=== PATIENT | male | born 1960 | race African-American/Black ===

== ENCOUNTER 2017-11-28 14:52 | Inpatient (IN) | payer MEDICARE, OTHER ==
[~2017-11-28] VITALS: Ht 182.9 cm; Wt 129.7 kg
[2017-11-28] MEDS: PRAMIPEXOLE DIHYDROCHLORIDE 0.25 MG TAB PO SCH (08:25)
[2017-11-28] MEDS: LORAZEPAM 1 MG TAB PO SCH (08:35)
[~2017-11-28 14:52] MED LIST: AMBIEN CR12.5 MG PO; ATORVASTATIN CA10 MG PO; ATORVASTATIN PO; CALCITRIOL0.25 MCG PO; DIALYVITE 8000.8 MG PO; NORCO 5-325 TA1 EACH PO; RENVELA800 MG PO; SODIUM ACETATE PO; SODIUM BICARB PO
--- OUTSIDE RECORDS SUMMARY | 2017-11-28 14:54 | XMS REPORT | Clinical Summary ---
Author Author Sammy [facility]arsani Organization [facility] Address Unknown Phone Unavailable Care Team Providers Care Front Office Specialist Name Role Phone Asked, Pcp PCP Unavailable Allergies Active Allergy Reactions Severity Noted Date Comments Meperidine Other (See Comments) 2016 Syncope; 20 years ago Current Medications Prescription Sig. Disp. Refills Start End Date Status Date zolpidem CR (AMBIEN CR) Take by mouth. Multiphase Active 12.5 MG CR tablet FA-vit Take by mouth. Active Rxyro-E-aupq-vitamin D3 (DIALYVITE 800-ULTRA D) 0.8-2,000 mg-unit tablet atorvastatin (LIPITOR) 10 Take by mouth. Active MG tablet HYDROcodone-acetaminophen Take by mouth. Active (NORCO) 5-325 mg per tablet sevelamer (RENVELA) 800 Take by mouth. Active mg tablet cinacalcet (SENSIPAR) 60 Take by mouth. Active MG tablet meloxicam (MOBIC) 15 MG Take 15 mg by mouth Active tablet daily. calcium acetate (PHOSLO) Take 1,334 mg by mouth 3 Active 667 mg capsule (three) times a day with meals. pramipexole (MIRAPEX) Take 0.125 mg by mouth 3 Active 0.125 MG tablet (three) times a day. sodium bicarbonate 648 MG Take 650 mg by mouth 3 Active tablet (three) times a day. cholecalciferol, vitamin Take 5,000 Units by mouth Active D3, (VITAMIN D3) 5,000 daily. unit capsule Active Problems Problem Noted Date Tachycardia 02/28/2016 Nephritis Overview: diagnosed over 20 years ago End stage renal disease on dialysis Overview: on transplant list Encounters Date Type Specialty Care Team Description 02/18/2017 Documentation Transplant Sima Martinez dialysis liaison waitlist update after 11/27/2016 Social History Tobacco Use Types Packs/Day Years Used Date Never Smoker Alcohol Use Drinks/Week oz/Week Comments No Sex Assigned at Date Recorded Not on file Last Filed Vital Signs Vital Sign Reading Time Taken Blood Pressure - - Pulse - - Temperature - - Respiratory Rate - - Oxygen Saturation - - Inhaled Oxygen - - Concentration Weight 119 kg (262 lb) 02/18/2017 1:37 PM CDT Height 177.8 cm (5' 10") 02/18/2017 1:37 PM CDT Body Mass Index 37.59 02/18/2017 1:37 PM CDT Plan of Treatment Health Maintenance Due Date Last Done Comments COLONOSCOPY 02/05/2010 INFLUENZA VACCINE 04/26/2017 Results Not on fileafter 11/27/2016 Insurance Payer Benefit Subscriber ID Type Phone Address Plan / Group MEDICARE MEDICARE xxxxxxxxxx Medicare [place], [place] PART A AND B AETNA AETNA xxxxxxxxx HMO HMO,POS,EP O, MC/EC SONNYALEJANDRO THEE Transplant Self 1960 Home: [id number] [place] [address]
--- OUTSIDE RECORDS SUMMARY | 2017-11-28 14:54 | XMS REPORT | Clinical Summary ---
Author Author AUGIE [facility] Organization [facility] Address Unknown Phone Unavailable Care Team Providers Care Entry Level Staff Accountant Name Role Phone PCP Unavailable Allergies Active Allergy Reactions Severity Noted Date Comments Meperidine Other (See Comments) High 10/11/2012 Passed out Current Medications Prescription Sig. Disp. Refills Start End Date Status Date cloNIDine (CATAPRES) 0.2 Take 0.2 mg by mouth 3 Active MG tablet (three) times daily. hydrALAZINE (APRESOLINE) Take 100 mg by mouth 3 Active 100 MG tablet (three) times daily. lisinopril Take 40 mg by mouth as Active (PRINIVIL,ZESTRIL) 40 MG needed. tablet olmesartan (BENICAR) 40 Take 40 mg by mouth as Active MG tablet needed. amLODIPine (NORVASC) 10 Take 10 mg by mouth Active MG tablet daily. doxazosin (CARDURA) 8 MG Take 8 mg by mouth 2 Active tablet (two) times daily. furosemide (LASIX) 40 MG Take 40 mg by mouth as Active tablet needed. paricalcitol (ZEMPLAR) 4 Take 4 mg by mouth daily. Active MCG capsule Given IV during HD sevelamer (RENVELA) 800 Take 1,600 mg by mouth 3 Active mg tablet (three) times daily with meals. sodium bicarbonate 648 MG Take 1 tablet by mouth Active tablet daily. Given IV during HD carvedilol (COREG) 6.25 Take 6.25 mg by mouth as Active MG tablet needed. NIFEdipine (ADALAT CC) 30 Take 30 mg by mouth 2 Active MG 24 hr tablet (two) times daily. atorvastatin (LIPITOR) 10 Take 10 mg by mouth Active MG tablet daily. zolpidem (AMBIEN) 10 mg Take 10 mg by mouth every Active tablet night as needed. HYDROcodone-acetaminophen Take 1 capsule by mouth Active (LORCET-HD) 5-500 mg per every 6 (six) hours as capsule needed. FA-vit Take 1 tablet by mouth Active Bcomp&D-saebxqbi-bdbk daily. (FOLIC ACID-VITAMIN B COMPLEX-VITAMIN P-[id number]) 3-70-15 mg-mcg-mg Tab Active Problems Problem Noted Date ESRD (end stage renal disease) on dialysis (HCC) GN (glomerulonephritis) HTN (hypertension) DM (diabetes mellitus) (HCC) CAD (coronary artery disease) Social History Tobacco Use Types Packs/Day Years Used Date Never Smoker Smokeless Tobacco: Never Used Sex Assigned at Date Recorded Not on file Last Filed Vital Signs Not on file Plan of Treatment Health Maintenance Due Date Last Done Comments INFLUENZA VACCINE 06/26/2017 Results Not on fileafter 11/27/2016
--- OUTSIDE RECORDS SUMMARY | 2017-11-28 15:35 | XMS REPORT | Clinical Summary ---
Author Author AUGIE [facility] Organization [facility] Address Unknown Phone Unavailable Care Team Providers Care Pool Hand Name Role Phone PCP Unavailable Allergies Active [...] FA-vit Take 1 tablet by mouth Active Bcomp&B-wkfcgqpg-uczo daily. (FOLIC ACID-VITAMIN B COMPLEX-VITAMIN [id number]) 3-70-15 mg-mcg-mg Tab Active Problems Problem Noted [...]
--- OUTSIDE RECORDS SUMMARY | 2017-11-28 15:35 | XMS REPORT | Clinical Summary ---
Author Author Sammy [facility] Organization [facility] Address Unknown Phone Unavailable Care Team Providers Care Tree And Shrub Worker Name Role Phone Asked, Pcp PCP Unavailable Allergies Active Allergy Reactions Severity Noted Date Comments Meperidine Other (See Comments) 2016 Syncope; 20 years ago Current Medications Prescription Sig. Disp. Refills Start End Date Status Date zolpidem CR (AMBIEN CR) Take by mouth. Multiphase Active 12.5 MG CR tablet FA-vit Take by mouth. Active Kaggq-M-pwzc-vitamin D3 (DIALYVITE 800-ULTRA D) 0.8-2,000 mg-unit tablet [...] Plan / Group MEDICARE MEDICARE xxxxxxxxxx Medicare [place], [place] PART A AND B AETNA AETNA xxxxxxxxx HMO HMO,POS,EP O, MC/EC SONNYALEJANDRO THEE Transplant Self 1960 Home: [id number] [place] [address]
[2017-11-28 16:09] VITALS: BP 157/73
[2017-11-28 16:40] VITALS: BP 157/73
[2017-11-28] MEDS ORDERED: SODIUM CHLORIDE 0.9% 250ML 250 ML ONE (16:40)
[2017-11-28] MEDS: VANCOMYCIN 1GM/NS 250 ML 250 ML IV SCH (16:56)
[2017-11-28] MEDS ORDERED: NORCO 10-325 T1 EACH PO (17:21)
[2017-11-28] MEDS ORDERED: VITAMIN D1000 UNI1 PO (17:21)
[2017-11-28] MEDS ORDERED: DIALYVITE 800-1 EACH (17:21)
[2017-11-28] MEDS ORDERED: HYDROCODONE/APAP 10MG-325MG TAB PO PRN (17:30)
[2017-11-28 18:23] LABS: HEMATOCRIT 28.4 % (38.2-49.6); HEMOGLOBIN 8.8 g/dL (14.0-18.0); MEAN CORPUSCULAR HEMOGLOBIN 29.3 pg (28-32); MEAN CORPUSCULAR VOLUME 94.7 fL (81-99); PLATELET COUNT 176 x10e3/uL (140-360); RED CELL DISTRIBUTION WIDTH 14.9 % (11.7-14.4)
--- NOTE | 2017-11-28 18:34 | Diagnostic Imaging Report ---
PROCEDURE:X-RAY RIGHT FOOT, COMPLETE COMPARISON:None. INDICATIONS:INFECTION FINDINGS: No acute fracture or dislocation. Erosive changes of the tip of the distal phalanx of the second toe with soft tissue swelling. There is also questionable mild erosive changes of the tip of distal phalanx of great toe. Mild hallux valgus deformity. Vascular calcifications. Soft tissue swelling of the forefoot and midfoot. CONCLUSION: Findings, suspicious for osteomyelitis of the distal phalanx of the second toe. Please correlate clinically and if indicated consider obtaining MRI to confirm. Questionable minimal erosive changes of the tip of the distal phalanx of the great toe. Dictated by: Paxton Acevedo M.D. on 11/28/2017 at 18:33 Electronically approved by: Paxton Acevedo M.D. on 11/28/2017 at 18:33
[2017-11-28 18:35] LABS: ANION GAP 19.7 mmol/L (8-16); CALCIUM 8.6 mg/dL (8.4-10.2); CREATININE, SERUM 7.48 mg/dL (0.72-1.25); POTASSIUM 4.7 mmol/L (3.5-5.1)
[2017-11-28] MEDS ORDERED: CALCIUM ACETAT667 MG PO (19:49)
[2017-11-28] MEDS ORDERED: PRAMIPEXOLE D0.25 MG (19:49)
[2017-11-28] MEDS ORDERED: LORAZEPAM1 MG PO (19:49)
[2017-11-28 20:00] VITALS: BP 148/67
[2017-11-28] MEDS: ATORVASTATIN 10 MG TAB PO SCH (20:25)
[2017-11-28] MEDS: CALCIUM ACETATE 667 MG GELCAP PO SCH (20:25)
[2017-11-28] MEDS: CALCITRIOL 0.25 MCG CAP PO SCH (20:25)
[2017-11-28] MEDS: PIPER-TAZ 3.375 GM 50 ML IV SCH (20:25)
[2017-11-28] MEDS ORDERED: CALCITRIOL 0.25 MCG CAP PO SCH (21:00)
[2017-11-28] MEDS ORDERED: ZOLPIDEM TARTRATE 12.5 MG PO SCH (21:00)
[2017-11-28] MEDS: HYDROCODONE/APAP 10MG-325MG TAB PO PRN (21:25)
[2017-11-29] VITALS (7 sets, daily range): BP systolic 131–161; BP diastolic 65–74
[2017-11-29] MEDS: ZOLPIDEM TARTRATE 10 MG TAB PO PRN ×2 (01:49→22:45)
[2017-11-29] MEDS: PIPER-TAZ 3.375 GM 50 ML IV SCH ×4 (02:01→20:00)
[2017-11-29] MEDS: VANCOMYCIN 1GM/NS 250 ML 250 ML IV SCH (04:49)
[2017-11-29] MEDS: ACETAMINOPHEN 325 MG TAB PO PRN ×2 (04:49→17:32)
[2017-11-29] MEDS ORDERED: AURYXIA PO SCH (08:00)
[2017-11-29] MEDS ORDERED: IRON-VITAMIN-MINERAL CAPSULE PO SCH (09:00)
[2017-11-29] MEDS ORDERED: NON-FORMULARY MEDICATION PO SCH (09:00)
[2017-11-29] MEDS ORDERED: ATORVASTATIN 10 MG TAB PO SCH (09:00)
[2017-11-29] MEDS ORDERED: SODIUM BICARBONATE 650 MG PO SCH (09:00)
[2017-11-29] MEDS ORDERED: SODIUM BICARBONATE 650 MG TAB PO SCH (09:00)
[2017-11-29] MEDS: CALCIUM ACETATE 667 MG GELCAP PO SCH ×3 (09:34→17:14)
[2017-11-29] MEDS: IRON-VITAMIN-MINERAL CAPSULE PO SCH (09:34)
[2017-11-29] MEDS: FOLIC ACID/CYANOCOB/PYRIDOXINE TAB PO SCH (09:34)
[2017-11-29] MEDS: SEVELAMER CARBONATE 800 MG TAB PO SCH ×3 (09:34→17:14)
[2017-11-29] MEDS: CHOLECALCIFEROL 1,000 UNIT TAB PO SCH (09:35)
[2017-11-29] MEDS: CALCITRIOL 0.25 MCG CAP PO SCH (09:35)
[2017-11-29] MEDS: HYDROCODONE/APAP 10MG-325MG TAB PO PRN ×2 (10:00→22:45)
--- NOTE | 2017-11-29 10:09 | History and Physical ---
CHIEF COMPLAINT: Right foot infection. HISTORY OF PRESENT ILLNESS: This is a 57-year-old male who presents to [facility] emergency room with a 1-week history of worsening right foot wound with surrounding swelling and redness of the right foot and right lower leg. The patient states that he has actually suffered from a chronic wound on his right foot for a year, but these symptoms became much worse in the last week. He has also been having fevers for the past couple of days. Denies any chills. On admission, the patient was found to have a white blood cell count of 10,400. The patient is also on hemodialysis. On admission, the patient's glucose was 152 mg/dL. Also, on admission the patient underwent a plain film x-ray of the right foot, which revealed findings suspicious for osteomyelitis of the right 2nd toe distal phalanx. The patient was admitted for further evaluation and treatment. REVIEW OF SYSTEMS GENERAL: Weight has been stable in the last year. He has had fever for the past couple of days. No chills. HEENT: No headaches. No visual changes. CARDIOVASCULAR/RESPIRATORY: No chest pain. No shortness of breath or cough. GI: No nausea, vomiting, diarrhea, or constipation. : No UTI or BPH symptoms. He only urinates minimally since he is on hemodialysis. NEUROMUSCULAR: Has numbness in his feet, but complains of worsening right foot wound with surrounding swelling and pain in the last week. PAST MEDICAL HISTORY 1. Type 2 diabetes mellitus (diet controlled). 2. Hypertensive heart disease. 3. Obesity. 4. End-stage renal disease (since 2012). 5. Chronic anemia. 6. Hyperlipidemia. 7. Anxiety disorder. 8. Restless leg syndrome. SURGICAL HISTORY 1. Gastric bypass in 2005 resulting in a 150-pound weight loss. 2. Panniculectomy. 3. Bilateral gynecomastia surgery. 4. Left carpal tunnel surgery. 5. Parathyroidectomy. 6. Left upper extremity AV fistula placement. FAMILY HISTORY: His mother also suffered from end-stage renal disease. SOCIAL HISTORY: The man lives with his . He is retired. No history of tobacco or alcohol use. ALLERGIES: MEPERIDINE. HOME MEDICATIONS 1. Atorvastatin 10 mg at bedtime. 2. Calcitriol 0.5 mcg t.i.d. 3. Calcium acetate 667 mg daily. 4. Cholecalciferol (vitamin D3) 5000 units daily. 5. Dialyvite 1 pill daily. 6. Hydrocodone with acetaminophen 10 per 325 mg 1 daily p.r.n. pain. 7. Lorazepam 1 mg by mouth before hemodialysis as needed. 8. Requip 0.125 mg once daily. 9. Zolpidem CR 12.5 mg at bedtime. 10. Sodium bicarbonate 650 mg b.i.d. PHYSICAL EXAMINATION GENERAL: He is awake, alert and oriented. No distress. Very pleasant and cooperative with exam. VITALS: Blood pressure is 135/70 but on admission was 157/73, pulse 80, respiratory rate 18, oxygen saturation 95% on room air, temperature is currently 98.9. The last temperature did get as high as 100.6 late last night. Height 6 feet zero inches, weight 256 pounds. Calculated body mass index 36. INTEGUMENT: Skin is warm and dry. No pallor or conjunctivitis appreciated. HEENT: Anicteric sclerae. Moist mucous membranes. NECK: Supple. CARDIOVASCULAR: Regular rate and rhythm. The patient has a systolic ejection murmur, as well as a faint rub. LUNGS: No rales. No rhonchi. No wheezing. ABDOMEN: Obese. EXTREMITIES: The patient's right foot is dressed, but he has obvious swelling and discoloration of the right foot, as well as the right lower leg. According to the patient, it is improving. NEUROLOGIC: Intact. No gross focal deficits. He has decreased pinprick to sensation to the plantar aspect of his bilateral feet. DIAGNOSES 1. Sepsis secondary to right 2nd toe osteomyelitis with surrounding cellulitis. 2. Right 2nd toe osteomyelitis with surrounding cellulitis. 3. Type 2 diabetes mellitus. 4. End-stage renal disease. 5. Hypertensive heart disease. 6. Obesity: Calculated body mass 36. 7. Anemia secondary to chronic disease/chronic kidney disease. PLAN 1. Consult nephrology for hemodialysis. 2. Agree with MRI as ordered by podiatry. 3. Consult podiatry. 4. Order iron studies, as well as vitamin B12 level because of the anemia. 5. Intravenous antibiotics. 6. Order blood cultures. 7. Acetaminophen for the patient's fever. 8. Pain control. 9. Will check a hemoglobin A1c. I spent 1 hour in the care of this patient. Job#: [id number] LOPEZ JENNINGS
[2017-11-29 10:22] LABS: BASOPHILS % 0.2 % (0.0-1.0); EOSINOPHILS % 0.4 % (0.0-6.0); HEMATOCRIT 27.4 % (38.2-49.6); HEMOGLOBIN 8.4 g/dL (14.0-18.0); LYMPHOCYTES # (AUTO) 0.4 (1.0-3.2); LYMPHOCYTES % 3.5 % (18.0-39.1); MEAN CORPUSCULAR HEMOGLOBIN 29.3 pg (28-32); MEAN CORPUSCULAR HGB CONC 30.7 g/dL (31-35); MEAN CORPUSCULAR VOLUME 95.5 fL (81-99); MONOCYTES # (AUTO) 1.4 (0.2-0.8); MONOCYTES % 13.4 % (4.4-11.3); NEUTROPHILS # (AUTO) 8.6 (2.1-6.9); NEUTROPHILS % 81.7 % (38.7-80.0); PLATELET COUNT 155 x10e3/uL (140-360); RED BLOOD COUNT 2.87 x10e6/uL (4.3-5.7); RED CELL DISTRIBUTION WIDTH 14.6 % (11.7-14.4)
[2017-11-29 10:39] LABS: CHOL/HDL RATIO 2.1 (3.9-4.7)
[2017-11-29 10:58] LABS: FERRITIN 475.38 ng/mL (21.81-274.66)
--- NOTE | 2017-11-29 12:36 | Consultation ---
DATE OF CONSULTATION: RENAL CONSULTATION HISTORY OF PRESENT ILLNESS: This a 57-year-old gentleman previously seen by [facility], switched to [facility] service. Receives dialysis Tuesday/Tuesday/Tuesday. Came in with gangrenous foot. Has osteomyelitis. Scheduled for surgery. Currently no apparent distress. Denies nausea, vomiting, headache, fever, chills, chest pain, shortness of breath. ALLERGIES: MEPERIDINE. CURRENT MEDICATIONS: Renagel 1600 mg p.o. t.i.d. with meals. Cholecalciferol 5000 units daily. Piptazo antibiotics. Sodium bicarbonate 650 mg p.o. b.i.d. Folic acid. Pyridoxine. Multivitamins. Tylenol p.r.n. Lorazepam p.r.n. Calcitriol 0.5 mg p.o. t.i.d. Vancomycin q.24, which I am going to switch to every hemodialysis. He is on zolpidem 10 mg p.o. nightly and pramipexole dihydrochloride 0.25 mg every Tuesday, Tuesday and Tuesday. SOCIAL HISTORY: Patient does not smoke or drink. PAST MEDICAL HISTORY: Type 2 diabetes, hypertension, end-stage renal disease. PHYSICAL EXAMINATION: GENERAL: Awake, alert, lying supine. No apparent distress. VITALS: Blood pressure 135/70, pulse rate 80. HEAD AND NECK: Cornea clear. Oral mucosa moist. Neck veins flat. LUNGS: Occasional rales, right lower zone more than left. HEART: S1/S2 audible. ABDOMEN: Otherwise soft, nontender. LOWER EXTREMITY EXAMINATION: Shows no edema. Dressing noted over the toe, which is not removed for evaluation. IMPRESSION/PLAN: 1. End-stage renal disease. 2. Underlying hypertension. 3. Secondary hyperparathyroidism. Calcitriol is very high dose. I will change it to daily. Has serum bicarbonate 30 once. I am going to stop the sodium bicarbonate tablets. Will dose vancomycin every Tuesday, Tuesday and Tuesday post dialysis. Will obtain Mircera schedule from the dialysis care team. Current volume status stable. Blood pressure appears stable. Please see orders. Job#: [id number] EV
--- NOTE | 2017-11-29 13:01 | Consultation ---
DATE OF CONSULTATION: November 29, 2017 HISTORY OF PRESENT ILLNESS: This is a 57-year-old male with past medical history of type-2 diabetes, end-stage renal disease, and hypertension, who was admitted through direct admitting yesterday after being seen in the office by Dr. Willingham with a worsening infection to his right foot. The patient relates having a wound to his right 2nd digit and has missed several appointments to see Dr. Willingham. The wound has significantly worsened. The patient was noted to have osteomyelitis on plain film x-ray in the office, and he was instructed to be admitted to the hospital for IV antibiotics, lab work, MRI and possible surgical intervention. The patient is seen at bedside this morning and is seen resting comfortably. He relates to moderate pain to his right foot. Denies nausea, vomiting, fever, chills, chest pain or shortness of breath. PAST MEDICAL HISTORY: Type-2 diabetes, heart disease, end-stage renal disease, chronic anemia, hyperlipidemia. SURGICAL HISTORY: Gastric bypass, left carpal tunnel surgery, left bunion surgery, parathyroidectomy, AV fistula. FAMILY HISTORY: Noncontributory. SOCIAL HISTORY: Patient is at home, , lives with his . Denies any history of alcohol use, smoking or any illicit drug usage. ALLERGIES: MEPERIDINE. HOME MEDICATIONS: Per the chart. REVIEW OF SYSTEMS: The patient currently denies nausea, vomiting, fever, chills, chest pain or shortness of breath. PHYSICAL EXAMINATION GENERAL: Alert and oriented times 3, in no apparent distress. VITAL SIGNS: Today, temperature is 99.5, blood pressure 149/65, pulse oximetry 92% on room air. PROBLEM-FOCUSED LOWER EXTREMITY PHYSICAL EXAMINATION VASCULAR: Dorsalis pedis and posterior tibial pulses are faintly palpable. Erythema, edema and warmth are noted to the patient's right 2nd digit greater than 2 cm extending to the level of the metatarsophalangeal joint. NEUROLOGIC: Sensation is diminished to light touch to bilateral lower extremities. MUSCULOSKELETAL: Pain on palpation, otherwise deferred at this time. DERMATOLOGICAL: Two large draining ulcerations are noted to the medial and lateral aspects of the patient's right 2nd digit with purulence noted. The wound probes directly to bone. There is malodor present. There is dark, dusky discoloration of the right 2nd digit. The right 2nd digit is approximately 1-1/2 to 2 times the size of the right 3rd digit. LABS: White blood cell count is 10.5, hemoglobin 8.4, hematocrit 27.4, platelet count 155. Neutrophil percentage is 81.7. Sodium 140, potassium 4.7, chloride 94, BUN 59, creatinine 7.4. X-RAYS: Three views were taken of the patient's right foot which show findings suspicious for osteomyelitis in the distal phalanx of the 2nd digit. ASSESSMENT 1. Right 2nd digit osteomyelitis. 2. Type-2 diabetes and peripheral neuropathy. 3. End-stage renal disease. PLAN: Patient was seen and evaluated. Discussed condition, x-rays and treatment options with the patient in detail. I discussed with the patient that plain film x-rays show osteomyelitis and would recommend a 2nd toe amputation at this time. The patient agrees. Will order MRI to confirm osteomyelitis and determine the extent of bone infection to see if the patient will need a partial 2nd ray amputation. MRI will be performed later today. The patient is on the schedule for a right 2nd digit amputation on 11/30/2017, at 12:30. The patient will have his dialysis started early in the morning at 7 o'clock in order to accommodate for the surgery. Dressing change was performed today with Betadine wet-to-dry, 4 x 4's, Kerlix and tape. Discussed with the patient the complications of the surgery including increased pain, increased infection, sepsis, nonhealing or delayed wound healing, need for long-term wound care, and need for additional surgery. The patient understands the podiatry service will continue to monitor as an inpatient. Job#: [id number]
[2017-11-29] MEDS: ATORVASTATIN 10 MG TAB PO SCH (21:44)
[2017-11-30] VITALS (7 sets, daily range): BP systolic 123–134; BP diastolic 58–76
[2017-11-30] MEDS: PIPER-TAZ 3.375 GM 50 ML IV SCH ×4 (02:00→20:11)
[2017-11-30] MEDS ORDERED: VANCOMYCIN 1GM/NS 250 ML 250 ML IV SCH (05:00)
[2017-11-30 07:49] LABS: BASOPHILS % 0.2 % (0.0-1.0); EOSINOPHILS # (AUTO) 0.1 (0.0-0.4); EOSINOPHILS % 1.5 % (0.0-6.0); HEMATOCRIT 26.2 % (38.2-49.6); HEMOGLOBIN 8.4 g/dL (14.0-18.0); LYMPHOCYTES # (AUTO) 0.5 (1.0-3.2); LYMPHOCYTES % 5.1 % (18.0-39.1); MEAN CORPUSCULAR HGB CONC 32.1 g/dL (31-35); MEAN CORPUSCULAR VOLUME 90.3 fL (81-99); MONOCYTES # (AUTO) 1.3 (0.2-0.8); MONOCYTES % 13.6 % (4.4-11.3); NEUTROPHILS # (AUTO) 7.3 (2.1-6.9); NEUTROPHILS % 79.3 % (38.7-80.0); PLATELET COUNT 159 x10e3/uL (140-360); RED CELL DISTRIBUTION WIDTH 14.5 % (11.7-14.4)
[2017-11-30] MEDS: SEVELAMER CARBONATE 800 MG TAB PO SCH ×3 (08:00→17:10)
[2017-11-30] MEDS: CALCIUM ACETATE 667 MG GELCAP PO SCH ×3 (08:00→17:10)
[2017-11-30 08:13] LABS: ALBUMIN 2.5 g/dL (3.5-5.0); ALBUMIN/GLOBULIN RATIO 0.7 (0.8-2.0); ANION GAP 22.6 mmol/L (8-16); CALCIUM 8.2 mg/dL (8.4-10.2); CREATININE, SERUM 9.9 mg/dL (0.72-1.25); POTASSIUM 4.6 mmol/L (3.5-5.1)
[2017-11-30] MEDS: HYDROCODONE/APAP 10MG-325MG TAB PO PRN ×3 (08:35→21:10)
[2017-11-30] MEDS: IRON-VITAMIN-MINERAL CAPSULE PO SCH (08:56)
[2017-11-30] MEDS: CHOLECALCIFEROL 1,000 UNIT TAB PO SCH (08:57)
[2017-11-30] MEDS: CALCITRIOL 0.25 MCG CAP PO SCH (08:57)
[2017-11-30] MEDS: VANCOMYCIN 1GM/NS 250 ML 250 ML IV SCH (08:57)
[2017-11-30] MEDS: FOLIC ACID/CYANOCOB/PYRIDOXINE TAB PO SCH (08:57)
[2017-11-30] MEDS: PRAMIPEXOLE DIHYDROCHLORIDE 0.25 MG TAB PO SCH (08:58)
[2017-11-30] MEDS: LORAZEPAM 1 MG TAB PO SCH (08:58)
[2017-11-30] MEDS ORDERED: ALBUMIN HUMAN 12.5GM / 50ML IV PRN (11:15)
[2017-11-30] MEDS ORDERED: SODIUM CHLORIDE 0.9% 1000ML 2,000 ML IV PRN (11:15)
[2017-11-30] MEDS ORDERED: MANNITOL 25% 12.5GM/50 ML VIAL IV PRN (11:15)
[2017-11-30] MEDS ORDERED: SODIUM CHLORIDE 0.9% 250ML 500 ML IV PRN (11:15)
[2017-11-30] MEDS ORDERED: BUPIVACAINE HCL 0.5% INJ 30 ML VIAL INJ ONE (12:24)
[2017-11-30] MEDS ORDERED: BACITRACIN 50,000 UNIT VIAL ONE (12:24)
[2017-11-30] MEDS ORDERED: DEXAMETHASONE SOD PHOS INJ 4 MG/ML VIAL ONE (12:24)
[2017-11-30] MEDS ORDERED: SODIUM CHLORIDE 0.9% 500ML 500 ML ONE (12:31)
--- NOTE | 2017-11-30 13:38 | Operative Report ---
DATE OF PROCEDURE: November 30, 2017 PREOPERATIVE DIAGNOSIS: Right 2nd digit osteomyelitis. POSTOPERATIVE DIAGNOSIS: Right 2nd digit osteomyelitis. PLANNED PROCEDURE: Right 2nd digit amputation. ANESTHESIA: General with a postoperative block consisting of 10 mL of 0.5% Marcaine plain. HEMOSTASIS: Pneumatic ankle tourniquet set at 250 mmHg for a total time of approximately 20 minutes. MATERIALS: 3-0 nylon. ESTIMATED BLOOD LOSS: Less than 10 mL. PATHOLOGY: Anaerobic and aerobic cultures. Right 2nd digit for gross specimen. DETAILS OF PROCEDURE: Patient was seen in the preoperative waiting room where the correct procedure and site were identified. The patient was brought into the operating room and placed on the operating table in the supine position. General anesthesia was initiated at this time, and a well-padded pneumatic tourniquet was placed about the patient's right ankle. The right foot, ankle and leg were exsanguinated with gravity, and the pneumatic ankle tourniquet was inflated to 250 mmHg for a total time of approximately 20 minutes. Attention was directed to the distal aspect of the patient's right 2nd digit where an ulceration was noted to the distal tip and the medial aspect of the proximal interphalangeal joint. There the wound probed deep to bone, and there was active purulent drainage. The decision was made to proceed with the amputation. A linear incision over the 2nd metatarsophalangeal joint extending to the metatarsophalangeal joint with 2 converging semi-elliptical incisions was started with a number 15 blade. The incision was carried down directly to the bone. There was noted to be a moderate amount of purulent drainage from the proximal interphalangeal joint. This was cultured and passed off to the back table. Next, the digit was grasped with a towel clamp, pulled distally as the metatarsophalangeal joint was easily identified. Utilizing a number 15 blade, the 2nd digit was disarticulated from the metatarsophalangeal joint and passed off to the back table to be sent for gross specimen. The wound was then debrided of all necrotic and devitalized tissue. The wound was then flushed with copious amounts of sterile saline mixed with bacitracin. There was a blister noted to the plantar aspect of the patient's 2nd metatarsophalangeal joint, which was deroofed and debrided of all necrotic tissue. At this time, the wound was then prepped for closure by removing all dog ears. The wound was reapproximated with simple interrupted sutures with 3-0 nylon. The wound was then dressed with Betadine-soaked Adaptic, Betadine-soaked 4 x 4's, Kerlix, Yamil wrap and a postop shoe. Patient tolerated the procedure and anesthesia well. Patient was transferred to the postoperative recovery unit with vital signs stable and vascular status intact. The patient was monitored there for a short period of time before being readmitted to the floor for postoperative monitoring, pain control and IV antibiotics. The podiatry service will continue to monitor as an inpatient. Job#: [id number] EV
[2017-11-30] MEDS ORDERED: PROPOFOL IV EMULSION 10 MG/ML 20 ML VIAL ONE (14:41)
[2017-11-30] MEDS ORDERED: SEVOFLURANE INHAL SOLN 250 ML PEN BTL ONE (14:41)
[2017-11-30] MEDS ORDERED: LIDOCAINE HCL 2% LOCAL INJ 5 ML SDV VIAL INJ ONE (14:41)
[2017-11-30] MEDS ORDERED: ONDANSETRON HCL INJ 2 MG/ML VIAL ONE (14:41)
--- NOTE | 2017-11-30 14:56 | Diagnostic Imaging Report ---
PROCEDURE:X-RAY RIGHT FOOT, TWO VIEWS COMPARISON:Patients [facility], DX, FOOT RIGHT COMPLETE, 11/28/2017, 18:20. INDICATIONS:STATUS POST 2ND TOE AMPUTATION FINDINGS: Status post amputation of the second toe. Small gas bubble distal to the second metatarsal head postoperative in etiology. Moderate hallux valgus deformity again observed. Erosive changes and deformity of the medial cuneiform with superimposed degenerative changes. Diffuse postoperative soft tissue swelling CONCLUSION: Status post amputation of the second toe. Moderate Hallux valgus deformity. Erosive changes of the medial cuneiform may be degenerative. Marielena Perez M.D. Dictated by: Marielena Perez M.D. on 11/30/2017 at 14:56 Electronically approved by: Marielena Perez M.D. on 11/30/2017 at 14:56
[2017-11-30] MEDS ORDERED: MIDAZOLAM HCL 2 MG/2 ML VIAL ONE (16:11)
[2017-11-30] MEDS ORDERED: FENTANYL CITRATE/PF 100MCG/2 ML INJ ONE (16:11)
[2017-11-30] MEDS ORDERED: HYDROCODONE/APAP 10MG-325MG TAB PO PRN ×2 (16:15→18:00)
[2017-11-30 18:01] LABS: FERRITIN 560.05 ng/mL (21.81-274.66)
[2017-11-30] MEDS: ATORVASTATIN 10 MG TAB PO SCH (20:11)
[2017-12-01] VITALS (8 sets, daily range): BP systolic 126–156; BP diastolic 66–81
[2017-12-01] MEDS: PIPER-TAZ 3.375 GM 50 ML IV SCH ×4 (01:59→20:40)
[2017-12-01] MEDS: HYDROCODONE/APAP 10MG-325MG TAB PO PRN ×3 (07:01→22:44)
[2017-12-01 07:06] LABS: BASOPHILS % 0.2 % (0.0-1.0); EOSINOPHILS # (AUTO) 0.1 (0.0-0.4); EOSINOPHILS % 1.1 % (0.0-6.0); HEMATOCRIT 27.3 % (38.2-49.6); HEMOGLOBIN 8.4 g/dL (14.0-18.0); LYMPHOCYTES # (AUTO) 0.5 (1.0-3.2); LYMPHOCYTES % 5.6 % (18.0-39.1); MEAN CORPUSCULAR HEMOGLOBIN 29.1 pg (28-32); MEAN CORPUSCULAR HGB CONC 30.8 g/dL (31-35); MEAN CORPUSCULAR VOLUME 94.5 fL (81-99); MONOCYTES # (AUTO) 1.5 (0.2-0.8); NEUTROPHILS # (AUTO) 7.1 (2.1-6.9); NEUTROPHILS % 76.7 % (38.7-80.0); PLATELET COUNT 177 x10e3/uL (140-360); RED BLOOD COUNT 2.89 x10e6/uL (4.3-5.7); RED CELL DISTRIBUTION WIDTH 14.5 % (11.7-14.4)
[2017-12-01 07:17] LABS: ANION GAP 19.7 mmol/L (8-16); POTASSIUM 4.7 mmol/L (3.5-5.1)
[2017-12-01] MEDS: SEVELAMER CARBONATE 800 MG TAB PO SCH ×3 (08:20→17:07)
[2017-12-01] MEDS: CALCIUM ACETATE 667 MG GELCAP PO SCH ×3 (08:20→17:07)
[2017-12-01] MEDS: CHOLECALCIFEROL 1,000 UNIT TAB PO SCH (08:20)
[2017-12-01] MEDS: FOLIC ACID/CYANOCOB/PYRIDOXINE TAB PO SCH (08:20)
[2017-12-01] MEDS: CALCITRIOL 0.25 MCG CAP PO SCH (08:20)
[2017-12-01] MEDS: IRON-VITAMIN-MINERAL CAPSULE PO SCH (08:20)
--- NOTE | 2017-12-01 10:28 | Progress Note ---
DATE: December 01, 2017 SUBJECTIVE: Mr. Mcintyre is a 57-year-old male with a past medical history of type 2 diabetes, end-stage renal disease and hypertension, who was seen today postoperative day 1, right 2nd digit amputation. He is seen resting comfortably at bedside. He relates to minimal pain to his right foot. He relates to getting up to go to the bathroom with using the assistance of a walker overnight. Currently, denies nausea, vomiting, chills, chest pain, or shortness of breath. No other complaints. OBJECTIVE VITAL SIGNS: Today, temperature 99.4, heart rate 18, blood pressure 126/66, pulse ox 91% on room air. T-max overnight was 100.3. LOWER EXTREMITY PHYSICAL EXAMINATION VASCULAR: Dorsalis pedis and posterior tibial pulses are faintly palpable. Erythema, edema and warmth are significantly improved to the patient's right foot. NEUROLOGICAL: Sensation is diminished to light touch bilateral. MUSCULOSKELETAL: Improved pain on palpation on resection of right 2nd digit. DERMATOLOGIC: All sutures are in place and intact. There is mild maceration to the incision site. Negative erythema, edema or warmth is noted to the incision site at this time. LABS: White blood cell count is 9.29, hemoglobin 8.4, hematocrit 27.3, and platelet count 177,000. MICROBIOLOGY: Gram-positive cocci in pairs. Gram-positive rods. White blood cell sensitivities are pending. ASSESSMENT 1. Right 2nd digit osteomyelitis, postoperative day 1: Status post right 2nd digit amputation. 2. Type 2 diabetes with peripheral neuropathy. 3. End-stage renal disease. PLAN: The patient was seen and evaluated today. I did a strikethrough to the dressing. The dressing was changed at this time with Betadine wet-to-dry. The wound was slightly macerated. However, no other local acute signs of infection were noted. At this time, will await surgical wound cultures to determine antibiotics upon discharge. The patient is to continue to be partial heel touch weightbearing with the walker to the right lower extremity. The podiatry service will continue to monitor as an inpatient. Job#: [id number] MA
--- NOTE | 2017-12-01 11:01 | Diagnostic Imaging Report ---
PROCEDURE:CHEST 2 VIEWS TECHNIQUE:PA and lateral chest totaling 3 radiographs INDICATION:Fever; cough; right foot infection COMPARISON:None. FINDINGS: Cardiomegaly with central vascular prominence and bilateral alveolar opacity. No pleural effusions. Intact skeleton. CONCLUSION: Cardiomegaly with pulmonary edema. No definite evidence of pneumonia. Dictated by: Erik Cheng M.D. on 12/01/2017 at 11:01 Electronically approved by: Erik Cheng M.D. on 12/01/2017 at 11:01
[2017-12-01] MEDS: LORATADINE 10 MG TAB PO SCH (11:02)
[2017-12-01] MEDS: ACETAMINOPHEN 325 MG TAB PO PRN (11:02)
[2017-12-01] MEDS: FERROUS SULFATE 325 MG TAB PO SCH (17:07)
[2017-12-01] MEDS: ATORVASTATIN 10 MG TAB PO SCH (20:40)
[2017-12-01] MEDS: ZOLPIDEM TARTRATE 10 MG TAB PO PRN (22:44)
[2017-12-02] VITALS: BP 154/76
[2017-12-02] MEDS: PIPER-TAZ 3.375 GM 50 ML IV SCH ×3 (02:20→14:37)
[2017-12-02 04:00] VITALS: BP 143/72
[2017-12-02 07:22] LABS: BASOPHILS % 0.5 % (0.0-1.0); EOSINOPHILS # (AUTO) 0.2 (0.0-0.4); HEMATOCRIT 27.8 % (38.2-49.6); HEMOGLOBIN 8.7 g/dL (14.0-18.0); LYMPHOCYTES # (AUTO) 0.6 (1.0-3.2); LYMPHOCYTES % 8.5 % (18.0-39.1); MEAN CORPUSCULAR HEMOGLOBIN 29.4 pg (28-32); MEAN CORPUSCULAR HGB CONC 31.3 g/dL (31-35); MEAN CORPUSCULAR VOLUME 93.9 fL (81-99); MONOCYTES # (AUTO) 1.2 (0.2-0.8); MONOCYTES % 16.1 % (4.4-11.3); NEUTROPHILS # (AUTO) 5.4 (2.1-6.9); NEUTROPHILS % 72.4 % (38.7-80.0); PLATELET COUNT 179 x10e3/uL (140-360); RED BLOOD COUNT 2.96 x10e6/uL (4.3-5.7); RED CELL DISTRIBUTION WIDTH 14.6 % (11.7-14.4)
[2017-12-02 07:30] VITALS: BP 131/83
[2017-12-02 07:38] VITALS: BP 131/83
[2017-12-02] MEDS: VANCOMYCIN 1GM/NS 250 ML 250 ML IV SCH (07:50)
[2017-12-02] MEDS: LORAZEPAM 1 MG TAB PO SCH (07:50)
[2017-12-02] MEDS: PRAMIPEXOLE DIHYDROCHLORIDE 0.25 MG TAB PO SCH (07:50)
[2017-12-02 07:51] LABS: CALCIUM 8.7 mg/dL (8.4-10.2); CREATININE, SERUM 9.99 mg/dL (0.72-1.25)
[2017-12-02] MEDS: SEVELAMER CARBONATE 800 MG TAB PO SCH ×3 (08:00→17:23)
[2017-12-02] MEDS: CALCIUM ACETATE 667 MG GELCAP PO SCH ×3 (08:00→17:23)
[2017-12-02] MEDS: FERROUS SULFATE 325 MG TAB PO SCH ×2 (08:00→17:23)
[2017-12-02] MEDS ORDERED: HEPARIN SOD (PORCINE) 1000 UNIT/ML SDV IV PRN (09:15)
[2017-12-02 11:49] VITALS: BP 135/79
[2017-12-02] MEDS ORDERED: IRON SUCROSE 100 MG in SODIUM CHLORIDE 0.9% 100 ML 100 ML IV SCH (13:00)
[2017-12-02] MEDS ORDERED: EPOETIN ALFA 10000 UNIT/ML VIAL SC ONE (13:00)
[2017-12-02] MEDS: CHOLECALCIFEROL 1,000 UNIT TAB PO SCH (13:04)
[2017-12-02] MEDS: LORATADINE 10 MG TAB PO SCH (13:04)
[2017-12-02] MEDS: CALCITRIOL 0.25 MCG CAP PO SCH (13:04)
[2017-12-02] MEDS: FOLIC ACID/CYANOCOB/PYRIDOXINE TAB PO SCH (13:04)
[2017-12-02] MEDS: HYDROCODONE/APAP 10MG-325MG TAB PO PRN (13:15)
[2017-12-02 16:23] VITALS: BP 119/80
--- NOTE | 2017-12-02 16:40 | Discharge Summary ---
ADMIT DIAGNOSES 1. Sepsis secondary to right 2nd toe osteomyelitis. 2. Right 2nd toe osteomyelitis with surrounding cellulitis. 3. Type 2 diabetes mellitus. 4. End-stage renal disease. 5. Hypertensive heart disease. 6. Anemia secondary to chronic disease/chronic kidney disease. DISCHARGE DIAGNOSES 1. Sepsis secondary to right 2nd toe osteomyelitis, resolved. 2. Status post right 2nd toe amputation. 3. Right foot cellulitis, resolving. 4. End-stage renal disease. 5. Hypertension heart disease. 6. Anemia secondary to chronic disease/iron deficiency. HOSPITAL COURSE: This is a 57-year-old man who was just admitted to [facility] with diagnosis of sepsis secondary to right 2nd toe osteomyelitis with surrounding cellulitis. The patient improved clinically with intravenous Zosyn and vancomycin, which she tolerated quite well. During this hospitalization, the patient underwent plain film X-ray during this hospitalization that confirmed the diagnosis of right 2nd toe osteomyelitis. The patient was seen by his climate change risk assessor during the hospitalization, namely Dr. Casey. Dr. Casey performed successful right foot 2nd digit amputation. The patient tolerated the procedure well. During this hospitalization, the patient received hemodialysis as directed by his foot caster, namely Dr. Holley. Also during this hospitalization, the patient had chest x-ray done which revealed findings consistent with congestive heart failure, but he improved clinically with hemodialysis. The patient was also infused intravenous iron during this hospitalization as well as given subcutaneous Erythropoietin because of his chronic anemia. During this hospitalization, the patient's iron studies were done that revealed a serum iron of 23. The patient's hospitalization was unremarkable. The patient's condition at the time of discharge was stable. The cultures from the right 2nd toe revealed Staphylococcus aureus and group B Strep species. The patient's condition on discharge was stable. DISCHARGE MEDICATIONS: 1. Augmentin 875 mg p.o. b.i.d. for 14 days. 2. Atorvastatin 10 mg nightly. 3. Calcitriol 0.5 mcg t.i.d. 4. Calcium acetate 667 mg daily. 5. Vitamin D3 1000 units daily. 6. Dialyvite 1 tablet daily. 7. Hydrocodone acetaminophen 10/55 one pill q.6 h. p.r.n. pain. 8. Lorazepam 1 mg before hemodialysis as needed for anxiety. 9. Requip 0.125 mg once daily. 10. Zolpidem CR 12.5 mg nightly insomnia. 11. Sodium bicarbonate 650 mg b.i.d. 12. Iron sulfate 325 mg b.i.d. FOLLOWUP INSTRUCTIONS: The patient is instructed to follow up with his climate change risk assessor, namely Dr. Serra or Dr. Casey within one week. The patient is instructed to follow up with his primary care physician within 2 weeks. ANTONIO UP MD Job#: [id number] cc:Gloria YUNG DPM
[2017-12-02] MEDS ORDERED: AUGMENTIN 875-1 EACH PO (17:26)
[2017-12-02] MEDS ORDERED: IRON325 M1 PO (17:28)
== END 2017-12-02 17:56 | disposition home or self-care (01) | DRG 853 ==
LOC: ER 14:52 → MED/SURG3 15:32
PROVIDERS: ADMIT Internal Medicine; ATTEND Internal Medicine
PROC: 5A1D70Z Performance of Urinary Filtration, Intermittent, Less than 6 Hours Per Day (ICD-10-PCS; 2017-11-30)
PROC: 0Y6R0Z1 Detachment at Right 2nd Toe, High, Open Approach (ICD-10-PCS; principal; 2017-11-30 12:30)
PROC: 5A1D70Z Performance of Urinary Filtration, Intermittent, Less than 6 Hours Per Day (ICD-10-PCS; 2017-12-02)
DX: A41.9 Sepsis, unspecified organism (principal); N18.6 End stage renal disease; E11.22 Type 2 diabetes mellitus with diabetic chronic kidney disease; E11.43 Type 2 diabetes mellitus with diabetic autonomic (poly)neuropathy; I12.0 Hypertensive chronic kidney disease with stage 5 chronic kidney disease or end stage renal disease; M86.9 Osteomyelitis, unspecified; N25.81 Secondary hyperparathyroidism of renal origin; E11.69 Type 2 diabetes mellitus with other specified complication; Z79.4 Long term (current) use of insulin; Z99.2 Dependence on renal dialysis; F41.9 Anxiety disorder, unspecified; E66.9 Obesity, unspecified; Z68.38 Body mass index [BMI] 38.0-38.9, adult; D63.1 Anemia in chronic kidney disease; L03.031 Cellulitis of right toe; B95.61 Methicillin susceptible Staphylococcus aureus infection as the cause of diseases classified elsewhere; B95.1 Streptococcus, group B, as the cause of diseases classified elsewhere; E03.9 Hypothyroidism, unspecified; D50.9 Iron deficiency anemia, unspecified; D63.8 Anemia in other chronic diseases classified elsewhere
CPT/HCPCS: 36415; 71046; 80048; 80053; 80061; 82607; 82728; 82747; 83036; 83540; 83880; 84466; 85007; 85025; 85027; 86704; 86705; 86706; 87040; 87071; 87075; 87186; 87205; 87340; 88305; 88307; 88311; 90962; 96367; J1100; J1644; J1756; J2001; J2250; J2405; J2543; J3370; J7030; J7040; J7050; Q4081

== ENCOUNTER 2021-02-03 15:22 | Outpatient (RCR) | payer MEDICARE, OTHER ==
[~2021-02-03 15:22] MED LIST changes: +AUGMENTIN 875-1 EACH PO; +CALCIUM ACETAT667 MG PO; +DIALYVITE 800-1 EACH; +IRON325 M1 PO; +LIDOCAINE VISC 2% SOLN 15 ML UDC ONE; +LORAZEPAM1 MG PO; +NORCO 10-325 T1 EACH PO; +PRAMIPEXOLE D0.25 MG PO; +VITAMIN D1000 UNI1 PO
[2021-02-17] MEDS ORDERED: CIPRO500 MG PO (12:51)
[2021-02-17] MEDS ORDERED: AMIODARONE HCL200 MG PO (12:51)
[2021-02-17] MEDS ORDERED: LOKELMA10 GM PO (12:51)
[2021-02-17] MEDS ORDERED: PANTOPRAZOLE SO40 MG PO (12:51)
[2021-02-17] MEDS ORDERED: ULTRAM50 MG PO (12:51)
[2021-02-17] MEDS ORDERED: VITAMIN B-121000 MCG PO (12:51)
[2021-02-17] MEDS ORDERED: LINZESS145 MCG PO (12:51)
[2021-02-17] MEDS ORDERED: ASPIRIN EC81 MG PO (12:51)
[2021-02-17] MEDS ORDERED: AMBIEN10 MG PO (12:51)
[2021-02-17] MEDS ORDERED: ELIQUIS2.5 MG PO (12:51)
[2021-02-17] MEDS ORDERED: MIDODRINE HCL5 MG PO (12:51)
[2021-02-17] MEDS ORDERED: RENAGEL800 MG PO (12:51)
[2021-02-17] MEDS ORDERED: [UNRECOGNIZED DRUG - OTHER] PO (12:51)
[2021-02-17] MEDS ORDERED: ALPRAZOLAM 0.5 MG TAB ONE (13:08)
[2021-02-17] MEDS ORDERED: DIPHENHYDRAMINE HCL 25 MG CAP ONE (13:08)
== END 2021-02-23 ==
LOC: WCC 15:22
PROVIDERS: ATTEND Family Medicine Adult Medicine
DX: E11.621 Type 2 diabetes mellitus with foot ulcer (principal); E11.628 Type 2 diabetes mellitus with other skin complications; A41.9 Sepsis, unspecified organism; M86.9 Osteomyelitis, unspecified; L97.421 Non-pressure chronic ulcer of left heel and midfoot limited to breakdown of skin; L97.511 Non-pressure chronic ulcer of other part of right foot limited to breakdown of skin; L03.031 Cellulitis of right toe; I79.8 Other disorders of arteries, arterioles and capillaries in diseases classified elsewhere; N18.6 End stage renal disease; B95.61 Methicillin susceptible Staphylococcus aureus infection as the cause of diseases classified elsewhere; D50.9 Iron deficiency anemia, unspecified; D63.1 Anemia in chronic kidney disease; N25.81 Secondary hyperparathyroidism of renal origin; E03.9 Hypothyroidism, unspecified; I95.9 Hypotension, unspecified; F41.9 Anxiety disorder, unspecified; I48.91 Unspecified atrial fibrillation

== ENCOUNTER → 2021-02-17 | Day surgery (SDC) | payer MEDICARE, OTHER ==
[2021-02-12 09:09] LABS: BASOPHILS # (AUTO) 0.1 (0.0-0.1); BASOPHILS % 1.3 % (0.0-1.0); EOSINOPHILS # (AUTO) 0.1 (0.0-0.4); EOSINOPHILS % 2.3 % (0.0-6.0); HEMATOCRIT 36.7 % (38.2-49.6); HEMOGLOBIN 11.2 g/dL (14.0-18.0); LYMPHOCYTES # (AUTO) 0.6 (1.0-3.2); LYMPHOCYTES % 12.4 % (18.0-39.1); MEAN CORPUSCULAR HEMOGLOBIN 28.6 pg (28-32); MEAN CORPUSCULAR HGB CONC 30.5 g/dL (31-35); MEAN CORPUSCULAR VOLUME 93.9 fL (81-99); MONOCYTES % 20.9 % (4.4-11.3); NEUTROPHILS % 62.9 % (38.7-80.0); PLATELET COUNT 167 x10e3/uL (140-360); RED BLOOD COUNT 3.91 x10e6/uL (4.3-5.7); RED CELL DISTRIBUTION WIDTH 17.1 % (11.7-14.4)
[2021-02-12 09:29] LABS: ALBUMIN 3.3 g/dL (3.5-5.0); ALBUMIN/GLOBULIN RATIO 0.8 (0.8-2.0); CALCIUM 8.8 mg/dL (8.4-10.2); CREATININE, SERUM 5.84 mg/dL (0.72-1.25)
[2021-02-12 10:17] LABS: LYMPHOCYTES % (MANUAL) 15 % (19-48); MONOCYTES % (MANUAL) 17 % (3.4-9.0); NEUTROPHILS % (MANUAL) 66 % (40-74)
[2021-02-12 10:18] LABS: ANISOCYTOSIS SLIGHT; PLATELET ESTIMATE ADEQUATE; PLATELET MORPHOLOGY COMMENT NORMAL; POLYCHROMASIA FEW
[2021-02-12 10:19] LABS: RBC MORPHOLOGY COMMENT ABNORMAL
[2021-02-17] VITALS (20 sets, daily range): BP systolic 90–146; BP diastolic 48–88
[~2021-02-17] VITALS: Ht 182.9 cm; Wt 97.5 kg
[~2021-02-17] MED LIST changes: +AMBIEN10 MG PO; +AMIODARONE HCL200 MG PO; +ASPIRIN 325 MG TAB ONE; +ASPIRIN EC81 MG PO; +ATROPINE SULFATE 0.1 MG/ML 10ML SYR ONE; +CIPRO500 MG PO; +ELIQUIS2.5 MG PO; +FENTANYL CITRATE/PF 100MCG/2 ML INJ ONE; +HEPARIN SOD/SOD CHLORIDE 2,000 ML ONE; +IOPAMIDOL 300MG/ML 100 ML INFUS..BTL IV ONE; +LIDOCAINE HCL 2% LOCAL 20 ML VIAL ONE; -LIDOCAINE VISC 2% SOLN 15 ML UDC ONE; +LINZESS145 MCG PO; +LOKELMA10 GM PO; +MIDAZOLAM HCL 2 MG/2 ML VIAL ONE; +MIDODRINE HCL5 MG PO; +MORPHINE SULFATE INJ 4 MG/ML INJ 1ML ONE; +PANTOPRAZOLE SO40 MG PO; +PRASUGREL 10 MG TAB ONE; +PROTAMINE SULFATE 10 MG/ML 5 ML VIAL ONE; +RENAGEL800 MG PO; +SODIUM CHLORIDE 0.9% 1000ML 1,000 ML ONE; +SODIUM CHLORIDE 0.9% 50ML 50 ML ONE; +ULTRAM50 MG PO; +VERAPAMIL HCL 2.5 MG/ML 2 ML VIAL ONE; +VITAMIN B-121000 MCG PO; +[UNRECOGNIZED DRUG - OTHER] PO
== END | disposition home or self-care (01) ==
LOC: CATH LAB 12:10
PROVIDERS: ATTEND Internal Medicine Interventional Cardiology
DX: I70.245 Atherosclerosis of native arteries of left leg with ulceration of other part of foot (principal); I70.92 Chronic total occlusion of artery of the extremities; I82.493 Acute embolism and thrombosis of other specified deep vein of lower extremity, bilateral; I87.2 Venous insufficiency (chronic) (peripheral); I20.8 Other forms of angina pectoris; R01.1 Cardiac murmur, unspecified; N28.9 Disorder of kidney and ureter, unspecified; Z01.812 Encounter for preprocedural laboratory examination; Z20.822 Contact with and (suspected) exposure to COVID-19; Z79.02 Long term (current) use of antithrombotics/antiplatelets; Z79.82 Long term (current) use of aspirin; Z99.2 Dependence on renal dialysis; Z82.49 Family history of ischemic heart disease and other diseases of the circulatory system; Z83.3 Family history of diabetes mellitus; Z82.3 Family history of stroke; Z84.1 Family history of disorders of kidney and ureter
CPT/HCPCS: 36415 ×2; 37186; 37229; 75625; 76937; 80053; 82948; 85025; C1724; C1769 ×3; J2001; J2250; J2270; J2720; J3010; J7030; Q9967; U0002; 36247; 37228; 75716; 99152; 99153

== ENCOUNTER 2021-08-12 13:05 | Inpatient (IN) | payer MEDICARE, OTHER ==
[~2021-08-12] VITALS: Ht 182.9 cm; Wt 93.0 kg
[~2021-08-12 13:05] MED LIST changes: -ASPIRIN 325 MG TAB ONE; -ATROPINE SULFATE 0.1 MG/ML 10ML SYR ONE; -FENTANYL CITRATE/PF 100MCG/2 ML INJ ONE; -HEPARIN SOD/SOD CHLORIDE 2,000 ML ONE; -IOPAMIDOL 300MG/ML 100 ML INFUS..BTL IV ONE; -LIDOCAINE HCL 2% LOCAL 20 ML VIAL ONE; -MIDAZOLAM HCL 2 MG/2 ML VIAL ONE; -MORPHINE SULFATE INJ 4 MG/ML INJ 1ML ONE; -PRASUGREL 10 MG TAB ONE; -PROTAMINE SULFATE 10 MG/ML 5 ML VIAL ONE; -SODIUM CHLORIDE 0.9% 1000ML 1,000 ML ONE; -SODIUM CHLORIDE 0.9% 50ML 50 ML ONE; -VERAPAMIL HCL 2.5 MG/ML 2 ML VIAL ONE
[2021-08-12] MEDS ORDERED: PIPERACILLIN/TAZOBACTAM 2.25 GM in SODIUM CHLORIDE 0.9% 50ML 50 ML IV STA (14:53)
[2021-08-12 15:08] LABS: BASOPHILS # (AUTO) 0.1 (0.0-0.1); BASOPHILS % 0.7 % (0.0-1.0); EOSINOPHILS # (AUTO) 0.1 (0.0-0.4); HEMATOCRIT 40.3 % (38.2-49.6); HEMOGLOBIN 12.1 g/dL (14.0-18.0); LYMPHOCYTES # (AUTO) 0.8 (1.0-3.2); LYMPHOCYTES % 11.9 % (18.0-39.1); MEAN CORPUSCULAR HEMOGLOBIN 28.1 pg (28-32); MEAN CORPUSCULAR VOLUME 93.5 fL (81-99); MONOCYTES # (AUTO) 1.5 (0.2-0.8); MONOCYTES % 21.1 % (4.4-11.3); NEUTROPHILS # (AUTO) 4.5 (2.1-6.9); NEUTROPHILS % 63.7 % (38.7-80.0); PLATELET COUNT 218 x10e3/uL (140-360); RED BLOOD COUNT 4.31 x10e6/uL (4.3-5.7); RED CELL DISTRIBUTION WIDTH 16.1 % (11.7-14.4)
[2021-08-12 15:28] LABS: ALBUMIN/GLOBULIN RATIO 0.7 (0.8-2.0); ANION GAP 17.5 mmol/L (8-16); CALCIUM 10.2 mg/dL (8.4-10.2); CREATININE, SERUM 3.92 mg/dL (0.72-1.25); POTASSIUM 4.5 mmol/L (3.5-5.1)
[2021-08-12] MEDS ORDERED: Vancomycin IV 1 GM in SODIUM CHLORIDE 0.9% 250ML 250 ML IV ONE (15:30)
[2021-08-12 15:34] LABS: CREATINE KINASE MB 1.7 ng/mL (0-5.0)
[2021-08-12 16:09] LABS: PARTIAL THROMBOPLASTIN TIME 33.3 seconds (23.8-35.5)
[2021-08-12] MEDS ORDERED: ONDANSETRON HCL INJ 2MG/ML 2ML 2 MG/ML VIAL IV PRN (16:45)
[2021-08-12 19:05] LABS: FERRITIN 879.33 ng/mL (21.81-274.66)
[2021-08-12] MEDS ORDERED: SEVELAMER CARBONATE 800 MG TAB PO PRN (20:00)
[2021-08-12] MEDS ORDERED: LORAZEPAM 0.5 MG TAB PO PRN (20:00)
[2021-08-12 21:00] VITALS: BP 100/46
[2021-08-12] MEDS ORDERED: ZOLPIDEM TARTRATE 10 MG TAB PO SCH (21:00)
[2021-08-12 21:30] VITALS: BP 100/46
[2021-08-12] MEDS: PRAMIPEXOLE DIHYDROCHLORIDE 0.25 MG TAB PO SCH (22:18)
[2021-08-12] MEDS: MIDODRINE HCL 5 MG TABLET PO SCH (22:18)
[2021-08-12] MEDS: HYDROCODONE/APAP 10MG-325MG TAB PO PRN (22:18)
[2021-08-13 00:20] VITALS: BP 99/55
[2021-08-13] MEDS ORDERED: SODIUM CHLORIDE 0.9% 250ML 250 ML ONE (02:14)
[2021-08-13] MEDS: PIPERACILLIN/TAZOBACTAM 2.25 GM in SODIUM CHLORIDE 0.9% 50ML 50 ML IV SCH ×2 (03:00→15:13)
[2021-08-13 04:55] LABS: BASOPHILS % 0.9 % (0.0-1.0); EOSINOPHILS # (AUTO) 0.2 (0.0-0.4); EOSINOPHILS % 3.8 % (0.0-6.0); HEMATOCRIT 36.3 % (38.2-49.6); HEMOGLOBIN 10.9 g/dL (14.0-18.0); LYMPHOCYTES # (AUTO) 0.6 (1.0-3.2); MEAN CORPUSCULAR HEMOGLOBIN 27.7 pg (28-32); MEAN CORPUSCULAR VOLUME 92.1 fL (81-99); MONOCYTES # (AUTO) 0.9 (0.2-0.8); MONOCYTES % 18.9 % (4.4-11.3); PLATELET COUNT 223 x10e3/uL (140-360); RED BLOOD COUNT 3.94 x10e6/uL (4.3-5.7); RED CELL DISTRIBUTION WIDTH 15.9 % (11.7-14.4)
[2021-08-13 05:00] LABS: CALCIUM IONIZED 1.1 mmol/L (1.09-1.30)
[2021-08-13 05:22] LABS: ALBUMIN 2.5 g/dL (3.5-5.0); ALBUMIN/GLOBULIN RATIO 0.7 (0.8-2.0); ANION GAP 18.5 mmol/L (8-16); CALCIUM 8.9 mg/dL (8.4-10.2); CREATININE, SERUM 4.9 mg/dL (0.72-1.25); POTASSIUM 4.5 mmol/L (3.5-5.1)
[2021-08-13 05:31] LABS: MAGNESIUM 1.8 MG/DL (1.3-2.1)
[2021-08-13] MEDS: SEVELAMER CARBONATE 800 MG TAB PO SCH ×4 (07:18→17:06)
[2021-08-13 07:21] VITALS: BP 98/54
[2021-08-13] MEDS: PRAMIPEXOLE DIHYDROCHLORIDE 0.25 MG TAB PO SCH ×3 (07:33→16:56)
[2021-08-13 07:36] VITALS: BP 98/54
[2021-08-13] MEDS: MIDODRINE HCL 5 MG TABLET PO SCH ×3 (08:32→16:30)
[2021-08-13] MEDS: HYDROCODONE/APAP 10MG-325MG TAB PO PRN (08:36)
[2021-08-13] MEDS ORDERED: CALCIUM ACETATE 667 MG GELCAP PO SCH (09:00)
[2021-08-13] MEDS ORDERED: PANTOPRAZOLE SOD 40 MG TABEC PO SCH (09:00)
[2021-08-13] MEDS ORDERED: CYANOCOBALAMIN 1,000 MCG TAB PO SCH (09:00)
[2021-08-13] MEDS ORDERED: CALCITRIOL 0.25 MCG CAP PO SCH (09:00)
[2021-08-13] MEDS ORDERED: ATORVASTATIN 10 MG TAB PO SCH (09:00)
[2021-08-13] MEDS ORDERED: LINACLOTIDE 145 MCG CAPSULE PO SCH (09:00)
[2021-08-13] MEDS ORDERED: AMIODARONE HCL 200 MG TAB PO SCH (09:00)
[2021-08-13 10:55] VITALS: BP 109/56
[2021-08-13] MEDS ORDERED: DEXAMETHASONE SOD PHOS INJ 4 MG/ML SDV ONE (11:15)
[2021-08-13] MEDS ORDERED: BUPIVACAINE HCL 0.5% INJ 30 ML VIAL INJ ONE (11:15)
[2021-08-13] MEDS ORDERED: ONDANSETRON HCL 4 MG ORAL DISINTEGRATING TAB PO PRN (11:30)
[2021-08-13 12:14] LABS: CREATINE KINASE MB 0.9 ng/mL (0-5.0)
[2021-08-13] MEDS ORDERED: HYDROCODONE/APAP 10MG-325MG TAB PO PRN (12:15)
[2021-08-13] MEDS ORDERED: AUGMENTIN 500-1 EACH PO (13:05)
[2021-08-13] MEDS ORDERED: SEVOFLURANE INHAL SOLN 250 ML PEN BTL ONE (13:30)
[2021-08-13] MEDS ORDERED: ONDANSETRON HCL INJ 2MG/ML 2ML 2 MG/ML VIAL ONE (13:30)
[2021-08-13] MEDS ORDERED: PROPOFOL IV EMULSION 10 MG/ML 20 ML VIAL ONE (13:30)
[2021-08-13] MEDS ORDERED: POVIDONE IODINE 0.05% 0.05 % ML PO ONE (13:30)
[2021-08-13] MEDS ORDERED: LIDOCAINE HCL 2% LOCAL INJ 5 ML SDV VIAL INJ ONE (13:30)
[2021-08-13] MEDS ORDERED: EPHEDRINE SULFATE INJ 50 MG/ML VIAL ONE (13:30)
[2021-08-13 14:45] VITALS: BP 103/55
[2021-08-13] MEDS ORDERED: HYDROCODON-ACE1 EA11 PO (18:02)
== END 2021-08-13 18:12 | disposition home or self-care (01) | DRG 617 ==
LOC: ER 14:53 → ERHOLD 16:57 → MED/SURG2 21:13
PROVIDERS: ADMIT Internal Medicine; ATTEND Internal Medicine
PROC: 0Y6T0Z3 Detachment at Right 3rd Toe, Low, Open Approach (ICD-10-PCS; principal; 2021-08-13 12:15)
DX: E11.69 Type 2 diabetes mellitus with other specified complication (principal); M86.8X7 Other osteomyelitis, ankle and foot; I12.0 Hypertensive chronic kidney disease with stage 5 chronic kidney disease or end stage renal disease; E11.52 Type 2 diabetes mellitus with diabetic peripheral angiopathy with gangrene; I96 Gangrene, not elsewhere classified; Z79.899 Other long term (current) drug therapy; E11.42 Type 2 diabetes mellitus with diabetic polyneuropathy; E11.22 Type 2 diabetes mellitus with diabetic chronic kidney disease; N18.6 End stage renal disease; Z99.2 Dependence on renal dialysis; E78.5 Hyperlipidemia, unspecified; E11.21 Type 2 diabetes mellitus with diabetic nephropathy; D63.8 Anemia in other chronic diseases classified elsewhere; Z20.822 Contact with and (suspected) exposure to COVID-19
CPT/HCPCS: 36415; 80053; 82550; 82553; 82607; 82728; 82746; 83036; 83540; 83735; 84466; 84484; 85025; 85610; 85651; 85730; 86141; 87040; 88304; 88305; 88311; 93005; 99285; J1100; J2001; J2405; J2543; J3370; J7050; U0002

== ENCOUNTER 2022-03-23 11:28 | Inpatient (IN) | payer MEDICARE, OTHER ==
[~2022-03-23] VITALS: Ht 182.9 cm; Wt 93.0 kg
[~2022-03-23 11:28] MED LIST changes: +AUGMENTIN 500-1 EACH PO; +HYDROCODON-ACE1 EA11 PO
[2022-03-23] MEDS ORDERED: SODIUM CHLORIDE FLUSH 10 ML SYR INJ PRN (12:00)
[2022-03-23] MEDS ORDERED: Vancomycin IV 1 GM in SODIUM CHLORIDE 0.9% 250ML 250 ML IV SCH (12:15)
[2022-03-23] MEDS ORDERED: PHENYLEPHRINE HCL 1% 10 MG/ML VIAL ONE (12:54)
[2022-03-23 15:32] VITALS: BP 102/56
[2022-03-23 15:42] VITALS: BP 102/56
[2022-03-23] MEDS ORDERED: VITAMIN D PO (15:49)
[2022-03-23] MEDS ORDERED: SODIUM CHLORIDE 0.9% 250ML 250 ML ONE (16:05)
[2022-03-23 16:23] VITALS: BP 102/56
[2022-03-23 20:00] VITALS: BP 94/50
[2022-03-23 21:00] VITALS: BP 94/50
[2022-03-23] MEDS: MIDODRINE 2.5 MG TAB PO SCH (23:21)
[2022-03-24] VITALS (8 sets, daily range): BP systolic 89–106; BP diastolic 43–57
[2022-03-24 06:18] LABS: BASOPHILS % 0.3 % (0.0-1.0); EOSINOPHILS # (AUTO) 0.1 (0.0-0.4); EOSINOPHILS % 1.3 % (0.0-6.0); HEMATOCRIT 31.8 % (38.2-49.6); HEMOGLOBIN 9.9 g/dL (14.0-18.0); LYMPHOCYTES # (AUTO) 0.8 (1.0-3.2); LYMPHOCYTES % 11.8 % (18.0-39.1); MEAN CORPUSCULAR HEMOGLOBIN 29.1 pg (28-32); MEAN CORPUSCULAR HGB CONC 31.1 g/dL (31-35); MEAN CORPUSCULAR VOLUME 93.5 fL (81-99); MONOCYTES # (AUTO) 0.9 (0.2-0.8); MONOCYTES % 13.3 % (4.4-11.3); NEUTROPHILS # (AUTO) 5.2 (2.1-6.9); NEUTROPHILS % 72.9 % (38.7-80.0); PLATELET COUNT 141 x10e3/uL (140-360); RED CELL DISTRIBUTION WIDTH 14.5 % (11.7-14.4)
[2022-03-24 06:46] LABS: ANION GAP 24.8 mmol/L (8-16); CALCIUM 7.3 mg/dL (8.4-10.2); CREATININE, SERUM 9.19 mg/dL (0.72-1.25); POTASSIUM 3.8 mmol/L (3.5-5.1)
[2022-03-24] MEDS: MIDODRINE 2.5 MG TAB PO SCH ×3 (08:56→16:02)
[2022-03-24] MEDS: POTASSIUM CHLORIDE 10MEQ EA PO SCH (08:58)
[2022-03-24] MEDS ORDERED: LORAZEPAM 1 MG TAB PO SCH (09:00)
[2022-03-24] MEDS ORDERED: TRAMADOL HCL 50 MG TAB PO PRN (13:00)
[2022-03-24] MEDS: PRAMIPEXOLE DIHYDROCHLORIDE 0.25 MG TAB PO SCH ×2 (13:46→21:41)
[2022-03-24] MEDS: LORAZEPAM 1 MG TAB PO PRN (13:47)
[2022-03-24] MEDS ORDERED: SODIUM CHLORIDE 0.9% 1000ML 2,000 ML ONE (14:30)
[2022-03-24] MEDS: APIXAB 2.5 MG TABLET PO SCH (16:03)
[2022-03-24] MEDS: SEVELAMER CARBONATE 800 MG TAB PO SCH (17:20)
[2022-03-24] MEDS ORDERED: ZOLPIDEM TARTRATE 10 MG TAB PO SCH (21:00)
[2022-03-24] MEDS: HYDROCODONE/APAP 10MG-325MG TAB PO PRN (21:41)
[2022-03-25] VITALS (8 sets, daily range): BP systolic 88–108; BP diastolic 45–58
[2022-03-25] MEDS: ZOLPIDEM TARTRATE 10 MG TAB PO PRN (00:17)
[2022-03-25] MEDS ORDERED: SODIUM CHLORIDE 0.9% 500ML 500 ML ONE (07:22)
[2022-03-25] MEDS ORDERED: BUPIVACAINE HCL 0.25% 10ML MPF VIAL INJ ONE (07:29)
[2022-03-25] MEDS ORDERED: Vancomycin IV 1 GM VIAL ONE (07:32)
[2022-03-25] MEDS ORDERED: VITAMIN D PO SCH (09:00)
[2022-03-25] MEDS: APIXAB 2.5 MG TABLET PO SCH ×2 (09:00→17:00)
[2022-03-25] MEDS: LINACLOTIDE 145 MCG CAPSULE PO SCH (09:18)
[2022-03-25] MEDS: CALCIUM ACETATE 667 MG GELCAP PO SCH (09:19)
[2022-03-25] MEDS: MIDODRINE 2.5 MG TAB PO SCH ×3 (09:20→17:45)
[2022-03-25] MEDS: SEVELAMER CARBONATE 800 MG TAB PO SCH ×3 (09:21→17:45)
[2022-03-25] MEDS: ASPIRIN 81 MG ENTERIC COATED PO SCH (09:22)
[2022-03-25] MEDS: AMIODARONE HCL 200 MG TAB PO SCH (09:22)
[2022-03-25] MEDS: POTASSIUM CHLORIDE 10MEQ EA PO SCH (09:23)
[2022-03-25] MEDS: PRAMIPEXOLE DIHYDROCHLORIDE 0.25 MG TAB PO SCH ×3 (09:24→22:23)
[2022-03-25] MEDS: CALCITRIOL 0.25 MCG CAP PO SCH (09:24)
[2022-03-25] MEDS: ATORVASTATIN 10 MG TAB PO SCH (09:24)
[2022-03-25] MEDS: PANTOPRAZOLE SOD 40 MG TABEC PO SCH (09:24)
[2022-03-25] MEDS: CHOLECALCIFEROL 1,000 UNIT TAB PO SCH (09:26)
[2022-03-25] MEDS: CYANOCOBALAMIN 1,000 MCG TAB PO SCH (09:26)
[2022-03-25] MEDS ORDERED: DIALYVITE 800-1 EACH PO (09:29)
[2022-03-25] MEDS: HYDROCODONE/APAP 10MG-325MG TAB PO PRN ×2 (10:34→22:25)
[2022-03-25] MEDS ORDERED: ONDANSETRON HCL INJ 2MG/ML 2ML 2 MG/ML VIAL ONE (12:31)
[2022-03-25] MEDS ORDERED: POVIDONE IODINE 0.05% 0.05 % ML PO ONE (12:31)
[2022-03-25] MEDS ORDERED: PROPOFOL IV EMULSION 10 MG/ML 20 ML VIAL ONE (12:31)
[2022-03-25] MEDS ORDERED: EPHEDRINE SULFATE INJ 50 MG/ML VIAL ONE (12:31)
[2022-03-25] MEDS ORDERED: SEVOFLURANE INHAL SOLN 250 ML PEN BTL ONE (12:31)
[2022-03-25] MEDS ORDERED: LIDOCAINE HCL 2% LOCAL INJ 5 ML SDV VIAL INJ ONE (12:31)
[2022-03-26 01:00] VITALS: BP 91/48
[2022-03-26] MEDS: ZOLPIDEM TARTRATE 10 MG TAB PO PRN (01:33)
[2022-03-26 03:53] VITALS: BP 88/53
[2022-03-26 07:12] LABS: CALCIUM 7.1 mg/dL (8.4-10.2); CREATININE, SERUM 9.22 mg/dL (0.72-1.25)
[2022-03-26 08:12] VITALS: BP 95/59
[2022-03-26 08:22] VITALS: BP 95/59
[2022-03-26] MEDS: ASPIRIN 81 MG ENTERIC COATED PO SCH (09:00)
[2022-03-26] MEDS: APIXAB 2.5 MG TABLET PO SCH ×2 (09:00→16:33)
[2022-03-26] MEDS: SEVELAMER CARBONATE 800 MG TAB PO SCH ×3 (10:02→16:33)
[2022-03-26] MEDS: MIDODRINE 2.5 MG TAB PO SCH ×3 (10:02→16:35)
[2022-03-26] MEDS: CALCITRIOL 0.25 MCG CAP PO SCH (10:03)
[2022-03-26] MEDS: CHOLECALCIFEROL 1,000 UNIT TAB PO SCH (10:05)
[2022-03-26] MEDS: LINACLOTIDE 145 MCG CAPSULE PO SCH (10:06)
[2022-03-26] MEDS: POTASSIUM CHLORIDE 10MEQ EA PO SCH (10:07)
[2022-03-26] MEDS: CALCIUM ACETATE 667 MG GELCAP PO SCH (10:08)
[2022-03-26] MEDS: CYANOCOBALAMIN 1,000 MCG TAB PO SCH (10:08)
[2022-03-26] MEDS: ATORVASTATIN 10 MG TAB PO SCH (10:09)
[2022-03-26] MEDS: PANTOPRAZOLE SOD 40 MG TABEC PO SCH (10:10)
[2022-03-26] MEDS: AMIODARONE HCL 200 MG TAB PO SCH (10:11)
[2022-03-26] MEDS: PRAMIPEXOLE DIHYDROCHLORIDE 0.25 MG TAB PO SCH (10:11)
[2022-03-26] MEDS ORDERED: SODIUM CHLORIDE 0.9% 1000ML 2,000 ML ONE (11:38)
[2022-03-26] MEDS: LORAZEPAM 1 MG TAB PO PRN (11:38)
[2022-03-26] MEDS ORDERED: ALBUMIN 25% 12.5GM 0.25 GM/ML BTL IV PRN (11:45)
[2022-03-26] MEDS ORDERED: SODIUM CHLORIDE 0.9% 250ML 500 ML IV PRN (11:45)
[2022-03-26] MEDS ORDERED: SODIUM CHLORIDE 0.9% 1000ML 2,000 ML IV PRN (11:45)
[2022-03-26 11:57] VITALS: BP 95/54
[2022-03-26 16:00] VITALS: BP 104/53
== END 2022-03-26 17:26 | disposition home or self-care (01) | DRG 255 ==
LOC: ER 11:29 → ERHOLD 11:54 → MED/SURG3 14:29
PROC: 5A1D70Z Performance of Urinary Filtration, Intermittent, Less than 6 Hours Per Day (ICD-10-PCS; 2022-03-24)
PROC: 0JBR0ZZ Excision of Left Foot Subcutaneous Tissue and Fascia, Open Approach (ICD-10-PCS; 2022-03-25)
PROC: 0JBQ0ZZ Excision of Right Foot Subcutaneous Tissue and Fascia, Open Approach (ICD-10-PCS; 2022-03-25)
PROC: 0HRNXK3 Replacement of Left Foot Skin with Nonautologous Tissue Substitute, Full Thickness, External Approach (ICD-10-PCS; 2022-03-25)
PROC: 0HRMXK3 Replacement of Right Foot Skin with Nonautologous Tissue Substitute, Full Thickness, External Approach (ICD-10-PCS; 2022-03-25)
PROC: 0Y6S0Z0 Detachment at Left 2nd Toe, Complete, Open Approach (ICD-10-PCS; principal; 2022-03-25 07:21)
DX: E11.52 Type 2 diabetes mellitus with diabetic peripheral angiopathy with gangrene (principal); N18.6 End stage renal disease; L98.498 Non-pressure chronic ulcer of skin of other sites with other specified severity; M86.8X7 Other osteomyelitis, ankle and foot; I12.0 Hypertensive chronic kidney disease with stage 5 chronic kidney disease or end stage renal disease; L97.428 Non-pressure chronic ulcer of left heel and midfoot with other specified severity; L97.418 Non-pressure chronic ulcer of right heel and midfoot with other specified severity; Z79.899 Other long term (current) drug therapy; E11.69 Type 2 diabetes mellitus with other specified complication; Z20.822 Contact with and (suspected) exposure to COVID-19; E11.51 Type 2 diabetes mellitus with diabetic peripheral angiopathy without gangrene; I70.25 Atherosclerosis of native arteries of other extremities with ulceration; I95.89 Other hypotension; E78.5 Hyperlipidemia, unspecified; E11.22 Type 2 diabetes mellitus with diabetic chronic kidney disease; Z99.2 Dependence on renal dialysis; E11.621 Type 2 diabetes mellitus with foot ulcer; Z79.4 Long term (current) use of insulin; F41.9 Anxiety disorder, unspecified
CPT/HCPCS: 0223U; 36415; 71045; 80048; 82948; 85025; 85651; 86141; 87071; 87075; 87186; 87205; 88304; 88305; 88311; 90962; 93005; 93925; 94799; 99251; 99284; C1713; J2001; J2370; J2405; J2543; J3370; J7030; J7040; J7050; Q4104